=== PATIENT | male | born 1965 | race Caucasian/White ===

== ENCOUNTER 2019-02-13 21:26 | Emergency (ER) | payer BC ==
--- OUTSIDE RECORDS SUMMARY | 2019-02-13 21:47 | XMS REPORT | Continuity of Care Document ---
:1965 External Reference #:[id number] Author Name Andrei Murcia M.D. Address [address] [place] [address] Care Team Providers Name Role Phone Sara Reyes O.D. Care Team Information Public Welfare Worker [phone] Problems Active Problems Provider Date Pterygium Andrei Murcia M.D. Onset: 12/18/2018 Social History Type Date Description Comments Sex Unknown Tobacco Use Start: Unknown Current Cigarette Smoker 1 1/2 Packs Daily ETOH Use does not use alcohol Tobacco Use Start: Unknown Patient is a current smoker, smokes every day Smoking Status Reviewed: 01/24/19 Patient is a current smoker, smokes every day Allergies, Adverse Reactions, Alerts Active Allergies Reaction Severity Comments Date No Known Drug Allergy 12/17/2009 Medications Active Medications SIG Qnty Indications Ordering Provider Date Prednisolone Acetate 1 drop right eye 10ml H11.001 Andrei Douglas 02/03/2019 1% 4 xday for 1 Missy Murcia Suspension week, 3 x day for 1 week, 2 x day for 1 week, 1 xday for 1 week Bromsite 1 drop to right 5ml H11.001 Andrei Douglas 01/27/2019 0.075% Solution eye 1 xday Missy Murcia sample given. Advil as needed Unknown History Medications Erythromycin apply to 3.500gm H11.001 Andrei Douglas 01/22/2019 - 5mg/GM right eye 4 Missy Murcia 01/26/2019 Ointment xday. Tobradex 1 drop right 10ml H11.001 Andrei Douglas 12/18/2018 - 0.3-0.1% eye begin 3 Missy Murcia 02/02/2019 Suspension days prior to surgery. Artificial Tears 1 drop both Andrei Velez. 12/17/2018 - eyes as Missy Murcia 02/02/2019 0.2-0.2-1% Solution needed. Immunizations Description No Information Available Vital Signs Date Vital Result Comment 02/03/2019 3:50pm Intraocular Pressure Right Eye 13 mmHg ek 03:50 PM 01/27/2019 1:41pm Intraocular Pressure Right Eye 19 mmHg applanation RWW 01 :41 PM Results Test Acquired Date Facility Test Result H/L Range Note Laboratory test 01/21/2019 [facility] <SEE Specimen NOTE> 1 [facility] [place] [address] SURGICAL PATHOLOGY REPORT Patient Name:GT COWART :1965 Received:01/22/2019 Specimen(s) Received: A: Pterygium OD Clinical Diagnosis and History: ICD-10 H11.001. Pterygium OD. Additional clinical history includes smoker (1 d PPD), reflux. DIAGNOSIS: PTERYGIUM, OD FRAGMENTS OF BENIGN FIBROFATTY TISSUE WITH FOCAL CONGESTION (SEE COMMENT). Comment Sections show fragments of benign fibrofatty tissue. Several deeper levels have been obtained and reviewed and there is no overlying epithelium present for evaluation. Clinical correlation is recommended with further evaluation as clinically indicated. GROSS DESCRIPTION: Specimen received in formalin labeled pterygium OD are two irregular pink-small to [place]-white soft tissues which have predominantly smooth outer surfaces that measure 0.9 x 0.5 cm and 1.3 x 0.5 cm. The smaller specimen is inked blue, the larger specimen is inked black. Both specimens are serially sectioned and entirely submitted for microscopic examination. (1 block) josemanuel guillory/sami Processed at [facility], Histopathology, [address] [place] [address], [id number]. Reported at [facility] at [facility], [address] [place] [address], [facility]. Reported: 01/24/2019 Electronically Signed Out By Mikala wOen D.O. [facility]. This report may include immunohistochemical or in-situ hybridization results. Testing was developed and the performance characteristics determined by [facility] as required by CLIA '88. The FDA has determined that approval for specific use is not necessary for clinical use. The quality of Hematoxylin and Eosin stains and as applicable, for all immunohistochemical and/or special stains, including positive and negative controls, were reviewed and considered appropriate. ICD codes: H11.001 CPT4 codes: A: 94935L Procedures Date Code Description Status 12/18/2018 03390 Corneal Topography Unilateral Or Bilateral With Completed Interpretation 12/18/2018 72675 Comprehensive Exam New Patient Completed Medical Devices Description No Information Available Encounters Description No Information Available Assessments Date Code Description Provider 02/03/2019 H11.001 Unspecified pterygium of right eye Andrei Murcia M.D. 01/27/2019 H11.001 Unspecified pterygium of right eye Andrei Murcia M.D. 01/24/2019 H11.001 Unspecified pterygium of right eye Andrei Murcia M.D. 01/22/2019 H11.001 Unspecified pterygium of right eye Andrei Murcia M.D. 12/18/2018 H11.001 Unspecified pterygium of right eye Andrei Murcia M.D. Plan of Treatment 02/03/2019 - Andrei Murcia M.D.H11.001 Unspecified pterygium of right eyeNew Medication:Prednisolone Acetate 1 % - 1 drop right eye 4 xday for 1 week , 3 x day for 1 week, 2 x day for 1 week, 1 xday for 1 weekComments:Stop Tobradex and start Prednisolone 1 drop right eye 4 xday for 1 week, 3 x day for 1 week, 2 x dayfor 1 week, 1 xday for 1 week then stop. Use Bromsite 1 drop right eye 1 xday.No rubbing the eye. Return to work 02/20/19.Follow up:4- 6 weeks refraction. Functional Status Description No Information Available Mental Status Description No Information Available Referrals Description No Information Available
--- OUTSIDE RECORDS SUMMARY | 2019-02-13 21:47 | XMS REPORT | Continuity of Care Document ---
:1965 External Reference #:[id number] Author Name Andrei Murcia M.D. Address [address] [place] [address] Care Team Providers Name Role Phone Sara Reyes O.D. Care Team Information Machine Installer [phone] Problems Active Problems Provider Date Pterygium Andrei [...] Medications SIG Qnty Indications Ordering Provider Date Bromsite 1 drop to right 5ml H11.001 Andrei Douglas 01/27/2019 0.075% Solution eye 1 xday Missy Murcia sample given. Erythromycin apply to right 3.500gm H11.001 Andrei Douglas 01/22/2019 5mg/GM eye 4 xday. Missy Murcia Ointment Tobradex 1 drop right 10ml H11.001 Andrei Douglas 12/18/2018 0.3-0.1% eye begin 3 Missy Murcia Suspension days prior to surgery. Artificial Tears 1 drop both Andrei Douglas 12/17/2018 eyes as needed. Missy Murcia 0.2-0.2-1% Solution Immunizations Description No Information Available Vital Signs Date Vital Result Comment 01/27/2019 1:41pm Intraocular Pressure Right Eye 19 mmHg applanation RWW 01 :41 PM 12/18/2018 9:50am Intraocular Pressure Right Eye 12 mmHg Intraocular Pressure Left Eye 10 mmHg -CG 09:54 Am Results Test Acquired Date Facility Test Result H/L Range Note Laboratory test 01/21/2019 Lab [facility] <SEE Specimen NOTE> 1 [facility] [address] [place] [address] SURGICAL PATHOLOGY REPORT Patient Name:GT COWART :1965 [...] submitted for microscopic examination. (1 block) josemanuel rff/sgb Processed at [facility], Histopathology, [address] [place] [address], [address]. Reported at [facility] at [facility], [address] [place] [address], [address]. Reported: 01/24/2019 Electronically Signed Out By Mikala Owen D.O. [facility] This report may include immunohistochemical or in-situ hybridization results. Testing was developed and the performance characteristics determined by [facility] as required by CLIA '88. The FDA has determined that approval for specific use is not necessary for clinical use. The quality of Hematoxylin and Eosin stains and as applicable, for all immunohistochemical and/or special stains, including positive and negative controls, were reviewed and considered appropriate. ICD codes: H11.001 CPT4 codes: A: 09109J Procedures Date Code Description Status 12/18/2018 74221 Corneal Topography Unilateral Or Bilateral With Completed Interpretation 12/18/2018 64933 Comprehensive Exam New Patient Completed Medical Devices Description No Information Available Encounters Description No Information Available Assessments Date Code Description Provider 01/27/2019 H11.001 Unspecified pterygium of right eye Andrei Murcia M.D. 01/24/2019 H11.001 Unspecified pterygium of right eye Andrei Murcia M.D. 01/22/2019 H11.001 Unspecified pterygium of right eye Andrei Murcia M.D. 12/18/2018 H11.001 Unspecified pterygium of right eye Andrei Murcia M.D. Plan of Treatment Future Appointment(s):02/03/2019 2:45 pm - Andrei Murcia M.D. at [id number]/27/2019 - Andrei Murcia M.D.H11.001 Unspecified pterygium of right eyeNew Medication:Bromsite 0.075 % - 1 drop to right eye 1 xday sample given.Comments:Use Tobradex solution 1 drop right eye 4 times daily. Use E- mycin apply to right eye 4 times daily. Use Tobradex solution first and apply E- mycin ointment 5 minutes following. Wear shield at night. No rubbing the eye. Start Bromsite 1 drop right eye 1 xday.Follow up:1 week Functional Status Description No Information Available Mental Status Description No Information Available Referrals Description No Information Available
--- OUTSIDE RECORDS SUMMARY | 2019-02-13 21:47 | XMS REPORT | Continuity of Care Document ---
:1965 External Reference #:[id number] Author Name Andrei Murcia M.D. Address [address] [place] [address] Care Team Providers Name Role Phone Sara Reyes O.D. Care Team Information Service Center Coordinator [phone] Problems Active Problems Provider Date Pterygium Andrei [...] Medications SIG Qnty Indications Ordering Provider Date Erythromycin apply to right 3.500gm H11.001 Andrei Douglas 01/22/2019 5mg/GM eye 4 xday. Missy Murcia Ointment Tobradex 1 drop right 10ml H11.001 Andrei Douglas 12/18/2018 0.3-0.1% eye begin 3 Missy Murcia Suspension days prior to surgery. Artificial Tears 1 drop both Andrei Douglas 12/17/2018 eyes as needed. Missy Murcia 0.2-0.2-1% Solution Immunizations Description No Information Available Vital Signs Date Vital Result Comment 12/18/2018 9:50am Intraocular Pressure Right Eye 12 mmHg Intraocular Pressure Left Eye 10 mmHg -CG 09:54 Am Results Description No Information Available Procedures Date Code Description Status 12/18/2018 36436 Corneal Topography Unilateral Or Bilateral With Completed Interpretation 12/18/2018 10150 Comprehensive Exam New Patient Completed Medical Devices Description No Information Available Encounters Description No Information Available Assessments Date Code Description Provider 01/24/2019 H11.001 Unspecified pterygium of right eye Andrei Murcia M.D. 01/22/2019 H11.001 Unspecified pterygium of right eye Andrie Murcia M.D. 12/18/2018 H11.001 Unspecified pterygium of right eye Andrei Murcia M.D. Plan of Treatment 01/24/2019 - Andrei Murcia M.D.H11.001 Unspecified pterygium of right eyeComments:Use Tobradex solution 1 drop right eye 4 times daily. Begin E-mycin apply to right eye 4 times daily. Use Tobradex solution first and apply E-mycin ointment 5 minutes following. Wear shield at night. No rubbing the eye.Follow up :Next week Functional Status Description No Information Available Mental Status Description No Information Available Referrals Description No Information Available
--- OUTSIDE RECORDS SUMMARY | 2019-02-13 21:47 | XMS REPORT | Continuity of Care Document ---
:1965 External Reference #:[id number] Author Name Andrei Murcia M.D. (transmitted by agent of provider Geraldine Shane) Address [address] [place] [address] Care Team Providers Name Role Phone Sara Reyes O.D. Care Team Information Hi Lift Operator [phone] Problems Active Problems Provider Date Pterygium Andrei Murcia M.D. Onset: 12/18/2018 Social History Type Date Description Comments Sex Unknown Tobacco Use Start: Unknown Patient is a current smoker, smokes every day Smoking Status Reviewed: 12/18/18 Patient is a current smoker, smokes every day Allergies, Adverse Reactions, Alerts Active Allergies Reaction Severity Comments Date No Known Drug Allergy 12/17/2009 Medications Active Medications SIG Qnty Indications Ordering Provider Date Tobradex 1 drop right eye 10ml H11.001 Andrei Douglas 12/18/2018 0.3-0.1% begin 3 days Missy Murcia Suspension prior to surgery. Artificial Tears 1 drop both eyes Andrei Douglas 12/17/2018 as needed. Missy Murcia 0.2-0.2-1% Solution Immunizations Description No Information Available Vital Signs Date Vital Result Comment 12/18/2018 9:50am Intraocular Pressure Right Eye 12 mmHg Intraocular Pressure Left Eye 10 mmHg -CG 09:54 Am Results Description No Information Available Procedures Date Code Description Status 12/18/2018 72901 Corneal Topography Unilateral Or Bilateral With Completed Interpretation 12/18/2018 10728 Comprehensive Exam New Patient Completed Medical Devices Description No Information Available Encounters Description No Information Available Assessments Date Code Description Provider 12/18/2018 H11.001 Unspecified pterygium of right eye Andrei Murcia M.D. Plan of Treatment 12/18/2018 - Andrei Murcia M.D.H11.001 Unspecified pterygium of right eyeNew Medication:Tobradex 0.3-0.1 % - 1 drop right eye begin 3 days prior to surgery.Comments:Risk, benefits and alternatives discussed with patient including prolonged healing and need for ointment or contact lens, 2 to 3 months to obtain best vision, irritation and redness for 4 to 6 weeks, chance of recurrence about 10 to 15%, need for sunglasses to prevent recurrence. Pt acknowledged understanding.All questions answered. Pt desires surgery.Proposed surgery: Pterygium removal with possible conjunctival transplant right eye.Follow up:Schedule pterygium removal with possible conjunctival transplant, right eye. Functional Status Description No Information Available Mental Status Description No Information Available Referrals Description No Information Available
--- OUTSIDE RECORDS SUMMARY | 2019-02-13 21:47 | XMS REPORT | Continuity of Care Document ---
:1965 External Reference #:[id number] Author Name Andrei Murcia M.D. Address [address] [place] [address] Care Team Providers Name Role Phone Sara Reyes O.D. Care Team Information Film Waxer [phone] Problems Active Problems Provider Date Pterygium Andrei Murcia M.D. Onset: 12/18/2018 Social History Type Date Description Comments Sex Unknown Tobacco Use Start: Unknown Patient is a current smoker, smokes every day Smoking Status Reviewed: 01/22/19 Patient is a current smoker, smokes every [...] Available Procedures Date Code Description Status 12/18/2018 92218 Corneal Topography Unilateral Or Bilateral With Completed Interpretation 12/18/2018 84263 Comprehensive Exam New Patient Completed Medical Devices Description No Information Available Encounters Description No Information Available Assessments Date Code Description Provider 01/22/2019 H11.001 Unspecified pterygium of right eye Andrei Murcia M.D. 12/18/2018 H11.001 Unspecified pterygium of right eye Andrei Murcia M.D. Plan of Treatment 01/22/2019 - Andrei Murcia M.D.H11.001 Unspecified pterygium of right eyeNew Medication:Erythromycin 5 mg/GM - apply to right eye 4 xday.Comments: Begin Tobradex solution 1 drop right eye 4 times daily. Begin E-mycin apply to right eye 4 times daily. Use Tobradex solution first and apply E-mycin ointment 5 minutes following. Wear shield at night.No rubbing the eye.Follow up:Sunday Functional Status Description No Information Available Mental Status Description No Information Available Referrals Description No Information Available
--- OUTSIDE RECORDS SUMMARY | 2019-02-13 21:47 | XMS REPORT | Continuity of Care Document ---
:1965 External Reference #:[id number] Author Name Andrei Murcia M.D. Address [address] [place] [address] Care Team Providers Name Role Phone Sara Reyes O.D. Care Team Information Specialty Therapist [phone] Problems Active Problems Provider Date Pterygium Andrei [...] 1 drop right eye 10ml H11.001 Andrei Dogulas 12/18/2018 0.3-0.1% begin 3 days Missy Murcia [...] Available Procedures Date Code Description Status 12/18/2018 87694 Corneal Topography Unilateral Or Bilateral With Completed Interpretation 12/18/2018 22123 Comprehensive Exam New Patient Completed Medical Devices [...]
[2019-02-13 22:03] LABS: Hematocrit 46 % (42-52); Hemoglobin 16.1 g/dL (14.0-18.0); Mean Corpuscular HGB Conc 35 g/dL (31-36); Mean Corpuscular Hemoglobin 31 pg (27-31); Mean Corpuscular Volume 89 fL (80-94); Mean Platelet Volume 8.7 fL (7.4-10.4); Platelet Count 150 10^3/uL (150-450); Red Blood Count 5.14 10^6 /uL (4.18-5.48); Red Cell Distribution Width 15 % (10-15); White Blood Count 3.8 10^3/uL (3.5-10.8)
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
[2019-02-13 22:18] LABS: ABS Basophils 0.1 10^3/ul (0-0.2); ABS Eosinophils 0.1 10^3/ul (0-0.6); ABS Lymphocytes 1.5 10^3/ul (1.0-4.8); ABS Monocytes 0.4 10^3/ul (0-0.8); ABS Neutrophils 1.8 10^3/ul (1.5-7.7); Eosinophil % 2.3 %; Lymphocyte % 39.5 %; Nucleated Red Blood Cells % 0.1
[2019-02-13 22:21] LABS: ALT 185 U/L (7-52); AST 163 U/L (13-39); Albumin 4.3 g/dL (3.2-5.2); Albumin/Globulin Ratio 1.7 (1-3); Alkaline Phosphatase 70 U/L (34-104); Anion Gap 9 mmol/L (2-11); BUN/Creatinine Ratio 9.4 (8-20); Blood Urea Nitrogen 6 mg/dL (6-24); C Reactive Protein < 1.00 mg/L (<8.01); CO2 Carbon Dioxide 21 mmol/L (22-32); Calcium 8.7 mg/dL (8.6-10.3); Chloride 100 mmol/L (101-111); EGFR African American 157.1 (>60); EGFR Non-African American 129.8 (>60); Globulin 2.6 g/dL (2-4); Glucose 95 mg/dL (70-100); Potassium 3.9 mmol/L (3.5-5.0); Sodium 130 mmol/L (135-145); Total Protein 6.9 g/dL (6.4-8.9)
[2019-02-13] MEDS ORDERED: Iohexol 350* (CONTRAST) 500 ML MDV IV ONE (22:30)
[2019-02-13 22:44] LABS: Urine Appearance Clear; Urine Bilirubin Negative (Negative); Urine Blood Negative (Negative); Urine Color Straw; Urine Glucose Negative (Negative); Urine Ketones Negative (Negative); Urine Nitrite Negative (Negative); Urine Protein Negative (Negative); Urine Specific Gravity 1.001 (1.010-1.030); Urine Urobilinogen Negative (Negative)
[2019-02-13 23:05] LABS: TSH (Thyroid Stimulating Horm) 3.53 mcIU/mL (0.34-5.60)
[2019-02-14 00:40] VITALS: BP 107/75
[2019-02-14 01:12] LABS: Hepatitis B Surface Antigen Nonreactive (Nonreactive)
[2019-02-14 01:30] LABS: Hepatitis C Antibody Negative (Negative)
== END 2019-02-14 00:35 | disposition left against medical advice (07) ==
LOC: ED 21:26
DX: R26.89 Other abnormalities of gait and mobility (principal); Z91.81 History of falling; K21.9 Gastro-esophageal reflux disease without esophagitis; F17.210 Nicotine dependence, cigarettes, uncomplicated; Z79.899 Other long term (current) drug therapy
CPT/HCPCS: 36415; 70450; 70496; 70498; 80053; 80074; 81003; 83605; 84443; 84484; 85025; 86140; 93005; 99284; Q9967

== ENCOUNTER 2019-04-24 22:40 | Emergency (ER) | payer BC ==
--- OUTSIDE RECORDS SUMMARY | 2019-04-24 23:13 | XMS REPORT | Continuity of Care Document ---
:1965 External Reference #:[id number] Author Name Andrei Murcia M.D. Address [address] [place] [address] Care Team Providers Name Role Phone Sara Reyes O.D. Care Team Information Expressive Music Therapist [phone] Rehan Jeffries P.A. 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 Onset: 03/17/2019 Pterygium Andrei Murcia M.D. Onset: 12/18/2018 Social History Type Date Description Comments Sex Unknown Tobacco Use Start: Unknown Current Cigarette Smoker 1 1/2 Packs Daily ETOH Use does not use alcohol Tobacco Use Start: Unknown Patient is a current smoker, smokes every day Smoking Status Reviewed: 03/17/19 Patient is a current smoker, smokes every day Allergies, Adverse Reactions, Alerts Active Allergies Reaction Severity Comments Date No Known Drug Allergy 12/17/2009 Medications Active Medications SIG Qnty Indications Ordering Provider Date Tobradex 1 drop right eye 10ml H11.241 Andrei Douglas 03/17/2019 0.3-0.1% begin 3 days Missy Murcia Suspension prior to surgery. Advil as needed Unknown History Medications Prolensa 1 drop right 3ml H11.001 Andrei Douglas 02/27/2019 - 0.07% eye 1 xday. Missy Murcia 02/19/2019 Solution Sample given Zylet 1 drop right 10ml H11.001 Andrei Douglas 02/27/2019 - 0.5-0.3% eye 2 xday. Missy Murcia 02/19/2019 Suspension Sample given. Prednisolone Acetate 1 drop right 10ml H11.001 Andrei VelezOlga Lidia 02/03/2019 - eye 4 xday for Missy Murcia 02/19/2019 1% Suspension 1 week, 3 x day for 1 week, 2 x day for 1 week, 1 xday for 1 week Bromsite 1 drop to 5ml H11.001 Andrei VelezOlga Lidia 01/27/2019 - 0.075% right eye 1 Missy Murcia 02/19/2019 Solution xday sample given. Erythromycin apply to right 3.500gm H11.001 Andrei AgustinOlga Lidia 01/22/2019 - 5mg/GM eye 4 xday. Missy Murcia 01/26/2019 Ointment Tobradex 1 drop right 10ml H11.001 Andrei VelezOlga Lidia 12/18/2018 - 0.3-0.1% eye begin 3 Missy Murcia 02/02/2019 Suspension days prior to surgery. Artificial Tears 1 drop both Andrei VelezOlga Lidia 12/17/2018 - eyes as Missy Murcia 02/02/2019 0.2-0.2-1% Solution needed. Immunizations Description No Information Available Vital Signs Date Vital Result Comment 03/17/2019 11:12am Intraocular Pressure Right Eye 11 mmHg Intraocular Pressure Left Eye 10 mmHg -CG, Applanation 11:12 Am 02/27/2019 10:37am Intraocular Pressure Right Eye 10 mmHg Intraocular Pressure Left Eye 10 mmHg -CG, Applanation 10:37 Am Results Test Acquired Date Facility Test Result H/L Range Note Laboratory test 01/21/2019 Lab [facility] <SEE Specimen NOTE> [facility] [address] [place] [address] SURGICAL PATHOLOGY REPORT Patient Name:GT COWART :1965 [...] examination. (1 block) josemanuel guillory/sami Processed at [facility], Histopathology, [address] [place] [address], [id number]. Reported at [facility] at [facility], [address] [place] [address], [facility]. Reported: 01/24/2019 Electronically Signed Out By Mikala Owen D.O. [facility], [facility]. This report may include immunohistochemical or in-situ hybridization results. Testing was developed and the performance characteristics determined by [facility] as required by CLIA '88. The FDA has determined that approval for specific use is not necessary for clinical use. The quality of Hematoxylin and Eosin stains and as applicable, for all immunohistochemical and/or special stains, including positive and negative controls, were reviewed and considered appropriate. ICD codes: H11.001 CPT4 codes: A: 74792F Procedures Date Code Description Status 01/21/2019 32023 Exc. Of Pterygium Without Graft Completed 12/18/2018 10941 Corneal Topography Unilateral Or Bilateral With Completed Interpretation 12/18/2018 60854 Comprehensive Exam New Patient Completed Medical Devices Description No Information Available Encounters Description No Information Available Assessments Date Code Description Provider 03/17/2019 H11.001 Unspecified pterygium of right eye Andrei Murcia M.D. 03/17/2019 H53.2 Diplopia Andrei Murcia M.D. 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 02/27/2019 H11.001 Unspecified pterygium of right eye Andrei Murcia M.D. 02/03/2019 H11.001 Unspecified pterygium of right eye Andrei Murcia M.D. 01/27/2019 H11.001 Unspecified pterygium of right eye Andrei Murcia M.D. 01/24/2019 H11.001 Unspecified pterygium of right eye Andrei Murcia M.D. 01/22/2019 H11.001 Unspecified pterygium of right eye Andrei Murcia M.D. 01/21/2019 H11.001 Unspecified pterygium of right eye Andrei Murcia M.D. 12/18/2018 H11.001 Unspecified pterygium of right eye Andrei Murcia M.D. Plan of Treatment Future Appointment(s):05/29/2019 10:30 am - Andrei Murcia M.D. at [facility]/17/2019 - Andrei Murcia M.D.H11.001 Unspecified pterygium of right eyeComments:NcbxubS70.2 UthttweqX92.241 Scarring of conjunctiva, right eyeNew Medication:Tobradex 0.3-0.1 % - 1 drop right eye begin 3 days prior to surgery.Follow up:Conjunctival tissue release right eye. 20 mins Functional Status Description No Information Available Mental Status Description No Information Available Referrals Description No Information Available
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
[2019-04-25] MEDS ORDERED: NS 0.9% 1000 ML** 1,000 ML IV ONE (00:19)
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
[2019-04-25 00:42] LABS: ABS Eosinophils 0.1 10^3/ul (0-0.6); ABS Lymphocytes 1.5 10^3/ul (1.0-4.8); ABS Monocytes 0.4 10^3/ul (0-0.8); ABS Neutrophils 2.3 10^3/ul (1.5-7.7); Eosinophil % 2.4 %; Hematocrit 46 % (42-52); Hemoglobin 15.8 g/dL (14.0-18.0); Lymphocyte % 35.5 %; Mean Corpuscular HGB Conc 35 g/dL (31-36); Mean Corpuscular Hemoglobin 31 pg (27-31); Mean Corpuscular Volume 89 fL (80-94); Mean Platelet Volume 7.9 fL (7.4-10.4); Nucleated Red Blood Cells % 0.1; Platelet Count 210 10^3/uL (150-450); Red Blood Count 5.15 10^6 /uL (4.18-5.48); Red Cell Distribution Width 16 % (10-15); White Blood Count 4.3 10^3/uL (3.5-10.8)
[2019-04-25 01:00] LABS: Albumin/Globulin Ratio 1.3 (1-3); BUN/Creatinine Ratio 9.3 (8-20); EGFR African American 130.8 (>60); EGFR Non-African American 108.1 (>60); Magnesium 1.9 mg/dL (1.9-2.7); Potassium 4.4 mmol/L (3.5-5.0); Total Bilirubin 0.6 mg/dL (0.2-1.0)
[2019-04-25 01:01] LABS: Troponin I 0.01 ng/mL (<0.03)
[2019-04-25 01:13] LABS: TSH (Thyroid Stimulating Horm) 1.62 mcIU/mL (0.34-5.60)
[2019-04-25 01:59] VITALS: BP 130/95
== END 2019-04-25 01:57 | disposition home or self-care (01) ==
LOC: ED 22:40
DX: I95.1 Orthostatic hypotension (principal); R74.0 Nonspecific elevation of levels of transaminase and lactic acid dehydrogenase [LDH]; R07.9 Chest pain, unspecified; R42 Dizziness and giddiness; K21.9 Gastro-esophageal reflux disease without esophagitis; F17.210 Nicotine dependence, cigarettes, uncomplicated; Z79.899 Other long term (current) drug therapy; Z88.8 Allergy status to other drugs, medicaments and biological substances
CPT/HCPCS: 36415; 80053; 82140; 83605; 83735; 84443; 84484; 85025; 93005; 96360; 99283